=== PATIENT | male | born 2000 | race Caucasian/White ===

== ENCOUNTER → 2019-11-28 11:14 | Outpatient (BNVA) | payer OTHER, SELFPAY | PROVIDERS: Family Provider Family Medicine; Visit Provider Nurse Practitioner Family | DX: R05 Cough (principal); J40 Bronchitis, not specified as acute or chronic; Z20.828 Contact with and (suspected) exposure to other viral communicable diseases | CPT/HCPCS: 87071; 87400; 87635; 87880 ==

== ENCOUNTER 2020-08-06 17:36 | Inpatient (IN) | payer OTHER, SELFPAY ==
[2020-08-06] VITALS (11 sets, daily range): BP systolic 114–204; BP diastolic 62–135; PULSE 94–127; RESP 18–46; TEMP 37; O2SAT 86–98; BMI 54.9
--- NOTE | 2020-08-06 18:18 | XRR_ITS ---
PROCEDURE INFORMATION: Exam: XR Chest, 1 View Exam date and time: 08/06/2020 6:26 PM Age: 20 years old Clinical indication: Dyspnea; Patient HX: Shortness of breath, chest pressure TECHNIQUE: Imaging protocol: XR of the chest Views: 1 view. Total images: 1 COMPARISON: No relevant prior studies available. FINDINGS: Lungs: Bilateral ground-glass interstitial lung disease with densely consolidated alveolar airspace disease right upper and right lower lobe of pneumonitis/pneumonia, right right lung involvement greater than left. Pleural space: Unremarkable. No pleural effusion. No pneumothorax. Heart/Mediastinum: Unremarkable. No cardiomegaly. Bones/joints: Unremarkable. XR/XR chest 1V portable [id number] IMPRESSION: Bilateral ground-glass interstitial lung disease with densely consolidated alveolar airspace disease right upper and right lower lobe of pneumonitis/pneumonia.
--- NOTE | 2020-08-06 18:18 | ECG_ITS ---
[facility], 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 Measurements Intervals [place] Rate: 105 P: 26 MT: 152 QRS: 36 QRSD: 93 T: 41 QT: 332 QTc: 440 Interpretive Statements SINUS TACHYCARDIA No previous ECG available for comparison Electronically Signed On 08-07-2020 16:44:02 SENIOR RELIABILITY ENGINEER by Ry Narayan M.D. [id number]
--- NOTE | 2020-08-06 18:20 | ED_ITS ---
HPI - General Adult General: Chief complaint: Shortness of Breath/Dyspnea Stated complaint: SOB, chest pressure Time Seen by Provider: 08/06/20 18:17 Source: patient Mode of arrival: ambulatory Limitations: no limitations History of Present Illness: HPI narrative: Herrera is a 20-year-old male who comes in complaining of flulike symptoms. He has cough, shortness of breath, s ore throat, muscle aches and pains and fatigue. His symptoms have been present for the past 4 to 5 days. Patient states that he just progressed became more weak and more short of breath that is why he came here to the hospital. He denies any history of respiratory problems. Of note upon the patient coming to triage she was found to be hypoxemic and immediately brought back to her room and on room air pulse ox he was 38% with a good waveform. Patient did not appear respiratory distress but does state that he feels short of breath. Patient states anytime she exerts himself or does anything that is physically taxing he becomes more short of breath and fatigue. He does state rest makes his symptoms better. Associated symptoms: Reports dyspnea and malaise; Deny chest pain, confusion, diaphoresis, headache(s), nausea, rash, palpitations, syncope or vomiting Review of Systems Const: Reports: fever(s), body aches, fatigue and malaise; Denies: chills or diaphoresis Eyes: Denies: change in vision, blurry vision, photophobia, eye discomfort, eye discharge, eye redness or yellow eyes ENMT: Reports: throat pain; Denies: odynophagia, hoarseness, swelling of lips/tongue, ear or mastoid pain, ear discharge, change in hearing or nasal discharge Card: Denies: chest pain, palpitations, irregular heart rhythm, edema, lightheadedness, syncope, pre-syncope, dyspnea on exertion or orthopnea Resp: Reports: dyspnea, non-productive cough and chest congestion; Denies: productive cough, wheezing or hemoptysis GI: Denies: abdominal pain, nausea, vomiting, hematemesis, coffee ground emesis, heartburn, diarrhea, constipation, GI cramping, hematochezia or melena : Denies: flank pain, dysuria, urinary frequency, urinary urgency or hematuria Musc: Denies: neck pain, back pain, extremity pain, extremity swelling, joint pain, joint swelling, joint redness, joint warmth or joint stiffness Skin/Breast: Denies: rash, pruritus, erythema, skin pain or skin tenderness Neuro: Denies: headache(s), numbness in extremities, weakness in extremities, sensory changes, lack of coordination, difficulty walking, dizziness, vertigo, confusion, Slurred speech present or seizure-like activity Bryson/Lymph: Denies: easy bruising, easy bleeding, petechiae, purpura or enlarged lymph nodes All/Imm: Denies: urticaria, throat swelling, tongue swelling, facial swelling or acute wheezing PFSH ED PFSH: Medical History Hypothyroidism Social History Smoking and tobacco status: current every day smoker Alcohol intake: never Physical Exam Const: COMMON NORMALS: no acute distress, patient oriented x3, no limitations and alert GENERAL APPEARANCE: cooperative HENMT: COMMON NORMALS: normocephalic, atraumatic, external ears normal, EAC's normal and Normal external nose present HEAD & SCALP: normal to inspection, normocephalic and atraumatic FACE & SINUS: normal facial exam and face symmetric NOSE: Normal external nose present and Normal nares present EXTERNAL EAR: Yes external ears normal EXTERNAL AUDITORY CANAL: EAC's normal MOUTH: Normal oral and palatal mucosa present, lip normal and tongue normal Eye: COMMON NORMALS: Equal, round and reactive pupils present and conjunctivae normal GENERAL EYE: appearance normal, both eyes and all related structures ALIGNMENT: Yes alignment normal PERIORBITAL: periorbital findings normal EYELID: eyelids normal CONJUNCTIVA: Yes conjunctivae normal SCLERA: sclera e normal PUPIL: Yes Equal, round and reactive pupils present Neck/C-Spine: COMMON NORMALS: full ROM, no lymphadenopathy, supple, no meningeal signs and no JVD GENERAL: Yes normal visual inspection and Yes trachea midline Chest: COMMONS NORMALS: normal inspection of the chest and normal palpation of entire chest wall Resp: COMMON NORMALS: normal respiratory effort, No retractions, No use of accessory muscles and clear to auscultation bilaterally EFFORT & INSPECTION: Yes able to speak in complete sentences and Yes symmetric chest movement AUSCULTATION: clear to auscultation bilaterally, no crackles, no rales, no rhonchi and no wheezes Cardio: COMMON NORMALS: no JVD, regular rate, regular rhythm, S1 normal heart sound present and S2 normal heart sound present RATE: regular rate RHYTHM: regular rhythm HEART SOUNDS: S1 normal heart sound present, S2 normal heart sound present, no click, no gallops, no murmurs and no rubs GI: COMMON NORMALS: Soft to palpation and No hepatosplenomegaly present PALPATION: Yes Soft to palpation, No Tenderness to palpation present (GI), No Guarding due to palpation present (GI), No Rigid due to palpation, Yes No hepatosplenomegaly present, No Hernia present, No Palpable mass present and No Pulsatile mass present : COMMON NORMALS: Yes no CVA tenderness BLADDER/KIDNEY EXAM: Yes no CVA tenderness Back/Pelvis: COMMON NORMALS: no CVA tenderness, thoracic and lumbar spine norm al to inspection, no thoracic nor lumbar tenderness and thoraco-lumbar ROM normal Extremity: COMMON NORMALS: normal to inspection, full ROM, capillary refill normal, no joint enlargement, no clubbing, cyanosis or edema and no calf tenderness Neuro: COMMON NORMALS: patient oriented x3, CN's II-XII intact bilaterally, moves all extremities, no focal motor deficits and no sensory deficits noted SENSORIUM/ORIENTATION: Yes alert MENINGEAL SIGNS: Yes no meningeal signs SPEECH: speech normal Psych: COMMON NORMALS: mental status grossly normal, Normal thought process present, cooperative, normal affect, speech normal and activity/motor behavior normal SPEECH: Yes normal speech THOUGHT PROCESS: Normal thought process present Skin: COMMON NORMALS: no rashes or lesions noted, turgor normal, no jaundice, no petechiae and no mottling GENERAL SKIN EXAM: no rashes or lesions noted and turgor normal Course Vital Signs: Vital signs: Vital Signs Temperature 98.6 F 08/06/20 18:16 Pulse Rate 114 H 08/06/20 20:30 Respiratory Rate 27 H 08/06/20 20:30 Blood Pressure 126/67 08/06/20 20:30 Pulse Oximetry 93 08/06/20 20:30 MDM - General Adult MDM Narrative: Medical decision making narrative: 2053 -the patient looks like a Covid syndrome type picture. His rapid Covid is negative but a PCR has been sent as I still believe this is likely what caused his pneumonia. The patient will need to be placed in the ICU as you requiring a tremendous amount of oxygen. He is no longer tachypneic but still requiring a lot of oxygen to maintain his pulse oximetry. Further care will be dictated by Dr. Singer. Lab Data: Attestation: I reviewed the patient's lab results. Labs: Lab Results 08/06/20 08/06/20 08/06/20 Range/Units 18:22 18:22 18:22 WBC 7.2 (4.0-10.0) 10^3/ uL RBC 5.88 H (4.1-5.3) 10^6/u L Hgb 13.9 (11.7-16.6) g/dL Hct 46.1 (42.0-52.0) % MCV 78.4 L (80-94) fL MCH 23.6 L (28.0-34.0) pg MCHC 30.2 (30.0-36.0) g/dL RDW 14.9 (12.1-15.1) % Plt Count 257 (130-400) 10^3/c mm MPV 10.9 H (7.4-10.4) fL Neut % (Auto) 68.7 % Lymph % (Auto) 23.5 % Davidson % (Auto) 6.5 % Eos % (Auto) 0.0 % Baso % (Auto) 0.3 % Neut # (Auto) 4.96 (1.8-7.7) 10^3/u L Lymph # (Auto) 1.7 (0.8-4.8) 10^3/u L Davidson # (Auto) 0.5 (0.2-0.9) 10^3/u L Eos # (Auto) 0.0 (0.0-0.8) 10^3/u L Baso # (Auto) 0.0 (0.0-0.1) 10^3/u L Nucleated RBC % (a uto) 1.8 % Nucleated RBCs # 0.1 /100WBC PT 13.70 (12.1-14.9) SECO NDS INR 1.02 (0.8-1.2) Fibrinogen 523 H (174-498) mg/dL D-Dimer 4.63 H (0-0.59) ug/mIFE U Specimen Type Sample Site ABG pH (7.35-7.45) ABG pCO2 (35-45) mmHg ABG pO2 (80.0-100.0) mmH g ABG HCO3 (22-26) mmol/L ABG Base Excess (-2.0-2.0) mmol/ L Esteban Test Hematocrit (42-52) % O2 Delivery Device O2 Liters/Min % Desulphurizer Operator ID Sodium 137 (136-145) mmol/L Potassium 4.0 (3.5-5.1) mmol/L Chloride 95 L (98-107) mmol/L Carbon Dioxide 32 H (22-29) mmol/L Anion Gap 14.0 (5-19) BUN 12 (6-20) mg/dL Creatinine 0.7 (0.7-1.2) mg/dL GFR Calculation 142.4 H (90-130) mL/min Glucose 150 H (65-115) mg/dL Calculated Osmolal ity 287 (285-295) mOsm/k g Lactic Acid (0.5-2.2) mmol/L Calcium 8.5 (8.5-10.5) mg/dL Total Bilirubin 0.7 (0.15-1.2) mg/dL AST 48 H (0-40) U/L ALT 43 H (0-41) U/L Alkaline Phosphata se 71 (40-130) IU/L Lactate Dehydrogen ase 940 H (135-225) U/L Creatine Kinase 587 H* (39-308) U/L Troponin T Gen 5 n g/L Troponin T Baselin e (0-15) ng/L C-Reactive Protein 119.3 H (0.0-4.9) mg/L NT-Pro-B Natriuret Pep (0-125) pg/mL Total Protein 6.0 L (6.6-8.7) g/dL Albumin 3.7 (3.5-5.2) g/dL Globulin 2.3 (1.3-4.6) g/dL Procalcitonin 0.20 (0-0.5) ng/mL Influenza Type A A g (Negative) Influenza Type B A g (Negative) SARS-CoV-2 Ag (Rap id) (Negative) 08/06/20 08/06/20 08/06/20 Range/Units 18:22 18:22 18:22 WBC (4.0-10.0) 10^3/ uL RBC (4.1-5.3) 10^6/u L Hgb (11.7-16.6) g/dL Hct (42.0-52.0) % MCV (80-94) fL MCH (28.0-34.0) pg MCHC (30.0-36.0) g/dL RDW (12.1-15.1) % Plt Count (130-400) 10^3/c mm MPV (7.4-10.4) fL Neut % (Auto) % Lymph % (Auto) % Davidson % (Auto) % Eos % (Auto) % Baso % (Auto) % Neut # (Auto) (1.8-7.7) 10^3/u L Lymph # (Auto) (0.8-4.8) 10^3/u L Davidson # (Auto) (0.2-0.9) 10^3/u L Eos # (Auto) (0.0-0.8) 10^3/u L Baso # (Auto) (0.0-0.1) 10^3/u L Nucleated RBC % (a uto) % Nucleated RBCs # /100WBC PT (12.1-14.9) SECO NDS INR (0.8-1.2) Fibrinogen (174-498) mg/dL D-Dimer (0-0.59) ug/mIFE U Specimen Type Sample Site ABG pH (7.35-7.45) ABG pCO2 (35-45) mmHg ABG pO2 (80.0-100.0) mmH g ABG HCO3 (22-26) mmol/L ABG Base Excess (-2.0-2.0) mmol/ L Esteban Test Hematocrit (42-52) % O2 Delivery Device O2 Liters/Min % Desulphurizer Operator ID Sodium (136-145) mmol/L Potassium (3.5-5.1) mmol/L Chloride (98-107) mmol/L Carbon Dioxide (22-29) mmol/L Anion Gap (5-19) BUN (6-20) mg/dL Creatinine (0.7-1.2) mg/dL GFR Calculation (90-130) mL/min Glucose (65-115) mg/dL Calculated Osmolal ity (285-295) mOsm/k g Lactic Acid 1.7 (0.5-2.2) mmol/L Calcium (8.5-10.5) mg/dL Total Bilirubin (0.15-1.2) mg/dL AST (0-40) U/L ALT (0-41) U/L Alkaline Phosphata se (40-130) IU/L Lactate Dehydrogen ase (135-225) U/L Creatine Kinase (39-308) U/L Troponin T Gen 5 n g/L Cancelled Troponin T Baselin e (0-15) ng/L C-Reactive Protein (0.0-4.9) mg/L NT-Pro-B Natriuret Pep 139 H (0-125) pg/mL Total Protein (6.6-8.7) g/dL Albumin (3.5-5.2) g/dL Globulin (1.3-4.6) g/dL Procalcitonin (0-0.5) ng/mL Influenza Type A A g (Negative) Influenza Type B A g (Negative) SARS-CoV-2 Ag (Rap id) (Negative) 08/06/20 08/06/20 08/06/20 Range/Units 18:22 18:23 19:28 WBC (4.0-10.0) 10^3/ uL RBC (4.1-5.3) 10^6/u L Hgb (11.7-16.6) g/dL Hct (42.0-52.0) % MCV (80-94) fL MCH (28.0-34.0) pg MCHC (30.0-36.0) g/dL RDW (12.1-15.1) % Plt Count (130-400) 10^3/c mm MPV (7.4-10.4) fL Neut % (Auto) % Lymph % (Auto) % Davidson % (Auto) % Eos % (Auto) % Baso % (Auto) % Neut # (Auto) (1.8-7.7) 10^3/u L Lymph # (Auto) (0.8-4.8) 10^3/u L Davidson # (Auto) (0.2-0.9) 10^3/u L Eos # (Auto) (0.0-0.8) 10^3/u L Baso # (Auto) (0.0-0.1) 10^3/u L Nucleated RBC % (a uto) % Nucleated RBCs # /100WBC PT (12.1-14.9) SECO NDS INR (0.8-1.2) Fibrinogen (174-498) mg/dL D-Dimer (0-0.59) ug/mIFE U Specimen Type Arterial Sample Site Radial, left ABG pH 7.44 (7.35-7.45) ABG pCO2 44.3 (35-45) mmHg ABG pO2 63.3 L (80.0-100.0) mmH g ABG HCO3 30.3 H (22-26) mmol/L ABG Base Excess 5.4 H (-2.0-2.0) mmol/ L Esteban Test Pos Hematocrit 43.3 (42-52) % O2 Delivery Device Nrb O2 Liters/Min 15.0 % Desulphurizer Operator ID Amh Sodium (136-145) mmol/L Potassium (3.5-5.1) mmol/L Chloride (98-107) mmol/L Carbon Dioxide (22-29) mmol/L Anion Gap (5-19) BUN (6-20) mg/dL Creatinine (0.7-1.2) mg/dL GFR Calculation (90-130) mL/min Glucose (65-115) mg/dL Calculated Osmolal ity (285-295) mOsm/k g Lactic Acid (0.5-2.2) mmol/L Calcium (8.5-10.5) mg/dL Total Bilirubin (0.15-1.2) mg/dL AST (0-40) U/L ALT (0-41) U/L Alkaline Phosphata se (40-130) IU/L Lactate Dehydrogen ase (135-225) U/L Creatine Kinase (39-308) U/L Troponin T Gen 5 n g/L Troponin T Baselin e 14 (0-15) ng/L C-Reactive Protein (0.0-4.9) mg/L NT-Pro-B Natriuret Pep (0-125) pg/mL Total Protein (6.6-8.7) g/dL Albumin (3.5-5.2) g/dL Globulin (1.3-4.6) g/dL Procalcitonin (0-0.5) ng/mL Influenza Type A A g Negative (Negative) Influenza Type B A g Negative (Negative) SARS-CoV-2 Ag (Rap id) (Negative) 08/06/20 Range/Units 19:28 WBC (4.0-10.0) 10^3/ uL RBC (4.1-5.3) 10^6/u L Hgb (11.7-16.6) g/dL Hct (42.0-52.0) % MCV (80-94) fL MCH (28.0-34.0) pg MCHC (30.0-36.0) g/dL RDW (12.1-15.1) % Plt Count (130-400) 10^3/c mm MPV (7.4-10.4) fL Neut % (Auto) % Lymph % (Auto) % Davidson % (Auto) % Eos % (Auto) % Baso % (Auto) % Neut # (Auto) (1.8-7.7) 10^3/u L Lymph # (Auto) (0.8-4.8) 10^3/u L Davidson # (Auto) (0.2-0.9) 10^3/u L Eos # (Auto) (0.0-0.8) 10^3/u L Baso # (Auto) (0.0-0.1) 10^3/u L Nucleated RBC % (a uto) % Nucleated RBCs # /100WBC PT (12.1-14.9) SECO NDS INR (0.8-1.2) Fibrinogen (174-498) mg/dL D-Dimer (0-0.59) ug/mIFE U Specimen Type Sample Site ABG pH (7.35-7.45) ABG pCO2 (35-45) mmHg ABG pO2 (80.0-100.0) mmH g ABG HCO3 (22-26) mmol/L ABG Base Excess (-2.0-2.0) mmol/ L Esteban Test Hematocrit (42-52) % O2 Delivery Device O2 Liters/Min % Desulphurizer Operator ID Sodium (136-145) mmol/L Potassium (3.5-5.1) mmol/L Chloride (98-107) mmol/L Carbon Dioxide (22-29) mmol/L Anion Gap (5-19) BUN (6-20) mg/dL Creatinine (0.7-1.2) mg/dL GFR Calculation (90-130) mL/min Glucose (65-115) mg/dL Calculated Osmolal ity (285-295) mOsm/k g Lactic Acid (0.5-2.2) mmol/L Calcium (8.5-10.5) mg/dL Total Bilirubin (0.15-1.2) mg/dL AST (0-40) U/L ALT (0-41) U/L Alkaline Phosphata se (40-130) IU/L Lactate Dehydrogen ase (135-225) U/L Creatine Kinase (39-308) U/L Troponin T Gen 5 n g/L Troponin T Baselin e (0-15) ng/L C-Reactive Protein (0.0-4.9) mg/L NT-Pro-B Natriuret Pep (0-125) pg/mL Total Protein (6.6-8.7) g/dL Albumin (3.5-5.2) g/dL Globulin (1.3-4.6) g/dL Procalcitonin (0-0.5) ng/mL Influenza Type A A g (Negative) Influenza Type B A g (Negative) SARS-CoV-2 Ag (Rap id) Negative (Negative) EKG Data^: EKG 1: Attestation: I personally reviewed and interpreted this EKG as follows: EKG interpretation date: 08/06/20 EKG interpretation time: 18:20 Interpretation: Sinus tachycardia at 115 beats a minute, normal axis, no blocks, intervals, no acute ST-T wave changes. Computer generated interpretation: Chest X-Ray 08/06/20 18:18 IMPRESSION: Bilateral ground-glass interstitial lung disease with densely consolidated alveolar airspace disease right upper and right lower lobe of pneumonitis/pneumonia. EKG 2: Attestation: I personally reviewed and interpreted this EKG as follows: EKG interpretation date: 08/06/20 EKG interpretation time: 20:34 Interpretation: Sinus tachycardia to 105 beats a minute, normal axis, no blocks, normal intervals, no acute ST-T wave changes. Computer generated interpretation: Chest X-Ray 08/06/20 18:18 IMPRESSION: Bilateral ground-glass interstitial lung disease with densely consolidated alveolar airspace disease right upper and right lower lobe of pneumonitis/pneumonia. Discharge Plan Discharge Patient Disposition: Admitted As Inpatient Clinical Impression: Viral pneumonia Condition: Stable Prescriptions: No Action azithromycin 250 mg tablet See Rx Instructions PO .COMPLEX Qty: 6 RF: 0 Coding Level of Care Code ED [employer] Supervisor for Gilda Fwd Exam Comprehensive
[2020-08-06 18:28] LABS: Basophils % 0.3 %; Hematocrit 46.1 % (42.0-52.0); Hemoglobin 13.9 g/dL (11.7-16.6); Lymphocytes # 1.7 10^3/uL (0.8-4.8); Lymphocytes % 23.5 %; Mean Corpuscular HGB Conc 30.2 g/dL (30.0-36.0); Mean Corpuscular Hemoglobin 23.6 pg (28.0-34.0); Mean Corpuscular Volume 78.4 fL (80-94); Mean Platelet Volume 10.9 fL (7.4-10.4); Monocytes # 0.5 10^3/uL (0.2-0.9); Monocytes % 6.5 %; Neutrophils # 4.96 10^3/uL (1.8-7.7); Neutrophils % 68.7 %; Nucleated Red Blood Cells # 0.1 /100WBC; Nucleated Red Blood Cells % 1.8 %; Platelet Count 257 10^3/cmm (130-400); Red Blood Count 5.88 10^6/uL (4.1-5.3); Red Cell Distribution Width 14.9 % (12.1-15.1); White Blood Count 7.2 10^3/uL (4.0-10.0)
[2020-08-06 18:34] LABS: ABG PCO2 44.3 mmHg (35-45); ABG PH Result 7.44 (7.35-7.45); Arterial Blood Gas Hematocrit 43.3 % (42-52); Base Excess ABG 5.4 mmol/L (-2.0-2.0); Blood Gas Allen Test Pos; Blood Gas Sample Site Radial, left; Blood Gas Sample Type Arterial; HCO3 ABG 30.3 mmol/L (22-26); Oxygen Device NRB; PO2 ABG 63.3 mmHg (80.0-100.0)
[2020-08-06] MEDS: albuterol 8 gm MDI 6 PUFF INHALATION (18:39)
[2020-08-06 18:45] LABS: INR 1.02 (0.8-1.2)
[2020-08-06 18:46] LABS: Lactic Sepsis W/Reflex 1.7 mmol/L (0.5-2.2)
[2020-08-06 18:47] LABS: Fibrinogen 523 mg/dL (174-498)
[2020-08-06 18:50] LABS: Troponin(5th) Baseline 14 ng/L (0-15)
[2020-08-06 18:56] LABS: D Dimer 4.63 ug/mIFEU (0-0.59)
[2020-08-06 19:07] LABS: Alanine Aminotransferase 43 U/L (0-41); Albumin Level 3.7 g/dL (3.5-5.2); Alkaline Phosphatase 71 IU/L (40-130); Aspartate Amino Transferase 48 U/L (0-40); Blood Urea Nitrogen 12 mg/dL (6-20); C Reactive Protein 119.3 mg/L (0.0-4.9); Calcium 8.5 mg/dL (8.5-10.5); Carbon Dioxide 32 mmol/L (22-29); Chloride 95 mmol/L (98-107); Globulin 2.3 g/dL (1.3-4.6); Glomerular Filtration Rate 142.4 mL/min (90-130); Glucose 150 mg/dL (65-115); Lactate Dehydrogenase 940 U/L (135-225); Osmolality Calculated 287 mOsm/kg (285-295); Sodium 137 mmol/L (136-145); Total Bilirubin 0.7 mg/dL (0.15-1.2)
[2020-08-06 19:09] LABS: Blood Gas Operator Identificat AMH
--- NOTE | 2020-08-06 19:09 | CTR_ITS ---
PROCEDURE INFORMATION: Exam: CT Angiography Chest With Contrast Exam date and time: 08/06/2020 7:10 PM Age: 20 years old Clinical indication: Shortness of breath; Additional info: Dyspnea, postive d-dimer TECHNIQUE: Imaging protocol: Computed tomographic angiography of the chest with intravenous contrast. 3D rendering (Not supervised by radiologist): MIP and/or 3D reconstructed images were created by the technologist. Total images: 955 Radiation optimization: All CT scans at this facility use at least one of these dose optimization techniques: automated exposure control; mA and/or kV adjustment per patient size (includes targeted exams where dose is matched to clinical indication); or iterative reconstruction. Contrast material: OMNIPAQUE 350; Contrast volume: 90 ml; Contrast route: INTRAVENOUS (IV); COMPARISON: CR XR chest 1V portable [id number] 08/06/2020 6:26 PM RADIATION DOSE METRICS: Total DLP (mGy-cm): 621.94 FINDINGS: Pulmonary arteries: No definitive visible evidence of pulmonary embolism/pulmonary arterial thrombus. Aorta: Unremarkable. No aortic aneurysm. No aortic dissection. Lungs: Extensive bilateral ground-glass interstitial lung disease with evidence of early consolidation consistent with active pneumonitis/pneumonia. Constellation of findings would suggest the potential for Covid-19 pneumonitis//pneumonia. Pleural space: Unremarkable. No pneumothorax. No pleural effusion. Heart: Unremarkable. No cardiomegaly. No pericardial effusion. Lymph nodes: Marginally prominent mediastinal and hilar lymph nodes. Presumed reactive. Liver: Diffuse fatty infiltration of the liver with hepatomegaly. Gallbladder and bile ducts: Hepatization of the gallbladder. Spleen: Splenomegaly. Bones/joints: Unremarkable. No acute fracture. Soft tissues: Unremarkable. Other findings: Obesity. Increased quantum mottle artifact which degrades image quality in detail assessment. CT/CT angio chest PE protcl [id number] IMPRESSION: 1. No definitive visible evidence of pulmonary embolism/pulmonary arterial thrombus. 2. Extensive bilateral ground-glass interstitial lung disease with evidence of early consolidation consistent with active pneumonitis/pneumonia. Constellation of findings would suggest the potential for Covid-19 pneumonitis//pneumonia. 3. Marginally prominent mediastinal and hilar lymph nodes presumably reactive. 4. Diffuse fatty infiltration of the liver with hepatomegaly. 5. Hepatization of the gallbladder. 6. Splenomegaly. Radiation Dose CTDIVOL = (mGy): DLP = 621.94 (mGy-cm)
[2020-08-06 19:10] LABS: Creatine Phosphokinase 587 U/L (39-308)
[2020-08-06 19:14] LABS: NT Pro B Type Natriuretic Pept 139 pg/mL (0-125)
[2020-08-06] MEDS: levofloxacin-dextrose 5 % 750 MG/150 ML PREMIX 150 MG IV (19:26)
[2020-08-06] MEDS: dexamethasone 4 mg/mL INJ 6 MG IVP (19:26)
[2020-08-06] MEDS: lactated ringers 1,000 ML 150 ML IV (19:27)
[2020-08-06 20:17] LABS: SARS Covid-2 Antigen Negative (Negative)
[2020-08-06 20:20] LABS: Influenza A by IFA Negative (Negative); Influenza B by IFA Negative (Negative)
--- NOTE | 2020-08-06 20:29 | ECG_ITS ---
[facility] Test Date: 2020-08-06 Pat Name: Herrera Jain Department: Room: Gender: Male Vice President Underwriting: : 2000 Requested By: Loree Kimball Order Number: [id number] Gonzalez MD: Ry Narayan M.D. Measurements Intervals [place] Rate: 115 P: 24 CT: 155 QRS: 36 QRSD: 87 T: 48 QT: 318 QTc: 440 Interpretive Statements SINUS TACHYCARDIA No previous ECG available for comparison Electronically Signed On 08-07-2020 16:59:25 EDUCATION REVIEWER by Ry Narayan M.D. [id number]
--- NOTE | 2020-08-06 20:59 | P.HP_ITS ---
Providers/Chief Complaint Chief Complaint: SOB, chest pressure History of Present Illness Herrera Jain is a 20 year old male who does not have significant past medical history other than hypothyroidism presented today with chief complaint of 4 days of shortness of breath. Patient is stating that he smokes marijuana on a weekly basis, does VAP on daily basis, started experiencing diarrhea 4 days ago and shortness of breath, also noticed temperature 101, he did not experience any coughing, PND, chest pain, headache but he has been experiencing myalgias, fatigue and lethargy, today his shortness of breath got worse hence decided to come to the ED for further evaluation. Patient was saturating 38% reportedly on room air on arrival, he was immediately put on high flow oxygen 55 L 85% FiO2 which improved his work of breathing and oxygenation, considering high D-dimer CT was obtained which did not reveal PE, procalcitonin not high he was started on remdesivir and Decadron. Covid antigen was negative hence PCR was sent because of high suspicion. Patient is stating that he was diagnosed with hypothyroidism in 2018 and never got any treatment for that, currently working for [employer], lives with a roommate, he does have anxiety and sometimes picks on his skin. Diagnosis in the ER revealed hypotension, tachycardia, sepsis secondary to COVID-19, he was started on lactated Ringer fluid resuscitation, by the time I saw her he was saturating well on high flow 55 L 85% he just came back from CTA chest was not endorsing active shortness of breath however endorsed pleuritic chest pain on right side, in the ER he received albuterol & Levaquin as well Review of Systems Const: Reports: fever(s), chills, body aches, change in appetite, fatigue and malaise Eyes: Denies: change in vision ENMT: Denies: throat pain Card: Reports: dyspnea on exertion; Denies: chest pain Resp: Reports: dyspnea and non-productive cough GI: Reports: diarrhea; Denies: abdominal pain : Denies: flank pain Musc: Denies: neck pain Skin/Breast: Denies: rash Neuro: Denies: headache(s) Psych: Denies: anxiety Endo: Denies: polyuria Bryson/Lymph: Denies: easy bruising All/Imm: Denies: urticaria Medications/Allergies Home Medications Medication Instructions Recorded Confirmed Last Taken Type azithromycin 250 mg tablet See Rx Instructions PO .COMPLEX #6 11/28/19 11/28/19 Unknown Rx tab Allergies Allergy/AdvReac Type Severity Reaction Status Date / Time No Known Allergies Allergy Verified 11/28/19 11:13 PFSH Acute PFSH: Medical History (Updated 08/06/20 @ 22:12 by Almas Singer MD) Hypothyroidism Surgical History (Updated 08/06/20 @ 22:06 by Almas Singer MD) No pertinent past surgical history Family History (Updated 08/06/20 @ 22:06 by Almas Singer MD) Other CAD (coronary artery disease) Diabetes Social History (Updated 08/06/20 @ 22:07 by Almas Singer MD) Smoking and tobacco status: current every day smoker Alcohol intake: never Substance/Drug Use: current Substance/Drug use type: Marijuana Other substance/drug use details: Vap Household members: friend(s) Housing: Apartment Vitals/I&O/Wt Last Vital Signs Temp 98.6 F 08/06/20 18:16 Pulse 114 H 08/06/20 20:30 Resp 27 H 08/06/20 20:30 BP 126/67 08/06/20 20:30 Pulse Ox 93 08/06/20 20:30 Weight last 48 hrs Weight 183.705 kg Data : 08/06/20 18:22 08/06/20 18:22 Micro: Microbiology 08/06/20 20:35 Blood Culture - Preliminary Blood SPECIMEN COLLECTED 08/06/20 18:22 Blood Culture - Preliminary Blood SPECIMEN COLLECTED A&P Assessment and plan (1) Viral pneumonia: Status: Acute (2) Sepsis: Status: Acute (3) Acute respiratory failure with hypoxia: Status: Acute Additional A&P Information Acute hypoxia with sepsis secondary to viral pneumonia Meets ARDS criteria for bilateral groundglass opacities and hypoxia Currently doing well on high flow oxygenation 55 L 85% High risk for intubation He has received Levaquin remdesivir and Decadron in the ER, procalcitonin is not remarkable CTA rule out PE I would continue, Levaquin, remdesivir and Decadron, would request Covid PCR Ventolin for shortness of breath every 4h as needed Differential would also include vaping induced lung injury Hypothyroidism We will check TSH, patient is not on levothyroxine Morbid obesity Follow-up on TSH, patient also is suffering from anxiety/depression picks on his skin whenever he gets anxious there are scar garza on his extremities however denies suicidal ideation Full code DVT prophylaxis Lovenox Regular diet Attestations Medical Necessity Statement*: Anticipating stay in the hospital course more than 2 midnights continued management for sepsis secondary to viral pneumonia needs to rule out Covid 19 pneumonia with PCR Time Spent in Patient Care: (>than 50% of time spent in counselling and/or direct pt care on unit) . 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
[2020-08-06 21:06] LABS: Troponin 5 2HR 13.07 ng/L (0-15)
[2020-08-06 21:07] LABS: Troponin 5 2HR Delta -0.93 ABS# (0-10)
[2020-08-06] MEDS: remdesivir 200 MG in sodium chloride 0.9% (100 ml) 100 ML 100 MG IV (21:44)
[2020-08-07] VITALS (45 sets, daily range): BP systolic 62–176; BP diastolic 46–119; PULSE 84–161; RESP 13–46; TEMP 36.6–37.1; O2SAT 50–100
--- NOTE | 2020-08-07 00:29 | ECG_ITS ---
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 Measurements Intervals [place] Rate: 91 P: 23 IL: 155 QRS: 20 QRSD: 93 T: 33 QT: 363 QTc: 447 Interpretive Statements SINUS RHYTHM Compared to ECG 08/06/2020 20:34:19 Sinus tachycardia no longer present Electronically Signed On 08-07-2020 16:58:17 MOLD LOFT WORKER by Ry Narayan M.D. [id number]
[2020-08-07 01:25] LABS: Troponin 5 6HR 8.51 ng/L (0-15)
[2020-08-07 01:40] LABS: Troponin 5 6HR Delta -5.49 ng/L (0-12)
[2020-08-07] MEDS: enoxaparin 40 mg/0.4 mL Syringe SUBCUT (04:45)
[2020-08-07 07:28] LABS: Estmated Average Glucose 171; Hemoglobin A1C 7.6 % (4.0-6.0)
[2020-08-07 07:33] LABS: Thyroid Stimulating Hormone 1.81 uIU/mL (0.27-4.20)
--- NOTE | 2020-08-07 08:12 | PM.PN ---
Subjective Subjective: Interval history: Patient stated he felt much better than at the time of admission. No fever, chills, nausea or vomiting. Denied chest pain. Noted improvement in respiratory distress. Medications: Reviewed: Yes Vitals/I&O/Wt Last Vital Signs Temp 98 F 08/07/20 17:00 Pulse 100 08/07/20 19:39 Resp 28 H 08/07/20 19:34 BP 95/70 08/07/20 17:00 Pulse Ox 90 08/07/20 19:39 08/07/20 08/07/20 08/07/20 06:59 14:59 22:59 Intake Total 100 / 250 150 / 150 Output Total 750 / 750 250 / 250 Balance -650 / -500 -250 / -250 150 / -100 Weight last 48 hrs Weight 183.705 kg Physical Exam Narrative: EXAM NARRATIVE: General: Alert, awake oriented x 3, Mild respiratory distress HEENT; Grossly unremarkable CVS : Normal Sinus Chest - Mild respiratory distress ABD :Non-distended Ext : edema Data : 08/07/20 10:48 08/07/20 10:48 Micro: Microbiology 08/06/20 20:35 Blood Culture - Preliminary Blood NEGATIVE TO DATE 08/06/20 18:22 Blood Culture - Preliminary Blood NEGATIVE TO DATE A&P Assessment and plan (1) Viral pneumonia: Status: Acute (2) Sepsis: Status: Acute (3) Acute respiratory failure with hypoxia: Status: Acute Additional A&P Information Acute Respiratory failure with Hypoxemia - Etiology multi-factorial. - Vaping-induced lung injury vs possible COVID-19 related - 08/06- Chest x-ray showed chronic ox and shoulders lung disease with densely consolidated alveolar airspace in right upper and lower lobes. 08/06- CTA - no evidence of pulmonary embolism however noted to again have bilateral ground-glass interstitial lung disease with early consolidation consistent with active pneumonitis / pneumonia. Mediastinal and hilar lymphadenopathy, fatty liver and splenomegaly. - COVID-19 rapid ag negative - pending PCR send out - Increase RR in am with mildly labored respiration - D/w Respiratory - Place on BiPaP - Repeat ABG 1 hr post PPV - Maintain o2 saturation > 92 - Continue Decadron 6 mg daily - High suspicion of COVID-19 - Initiated on remdesivir per protocol - IV abx - Decrease IVF to 50 cc/hr - Repeat chest x-ray and ABG in am - If COVID-19 postive will transfer to Viral ICU - Will consider pulmonary consult Hypothyroidism - Follow up on labs Morbid obesity - Dietary consult at discharge Full code DVT prophylaxis Lovenox Attestations Medical Necessity Statement*: Will require further hospitalization for management of hypoxemic respiratory failure Coding Level of Care Code Acute Human Resources Operations Director for Chg Fwd Diagnoses Viral pneumonia J12.9 Sepsis A41.9 Acute respiratory failure with hypoxia J96.01
--- NOTE | 2020-08-07 08:19 | PC.NURSE ---
awake restless ,, dypnic with any activity noted on high flow o2 at this time ..
[2020-08-07] MEDS: sodium chloride 0.9% 500 ML 999 ML IV (08:59)
--- NOTE | 2020-08-07 09:04 | XRR_ITS ---
PROCEDURE INFORMATION: Exam: XR Chest, 1 View Exam date and time: 08/07/2020 9:05 AM Age: 20 years old Clinical indication: Shortness of breath; Additional info: Worseing respiratory distress TECHNIQUE: Imaging protocol: XR of the chest Views: 1 view. COMPARISON: CR XR chest 1V portable [id number] 08/06/2020 6:26 PM FINDINGS: The thorax is partially obscured by overlying EKG leads. Lungs: Asymmetric airspace disease, right greater than left, and interstitial prominence. New obscuration of the right hemidiaphragm in association with worsening right basilar airspace disease and pleural effusion. Heart/Mediastinum: Epicardial fat accentuates the cardiac silhouette. Bones/joints: Unremarkable. XR/XR chest 1V portable [id number] IMPRESSION: 1. Asymmetric airspace disease, right greater than left, and interstitial prominence. 2. New obscuration of the right hemidiaphragm in association with worsening right basilar airspace disease and pleural effusion.
--- NOTE | 2020-08-07 09:10 | PC.NURSE ---
blood pressure down at this time ns bolus in progress at this time .. dypnic with any activity noted on high flow o2
--- NOTE | 2020-08-07 10:25 | PC.NURSE ---
iv sited right ac space
[2020-08-07 11:03] LABS: Hemoglobin 13.1 g/dL (11.7-16.6); Lymphocytes % 16.6 %; Mean Corpuscular HGB Conc 29.8 g/dL (30.0-36.0); Mean Corpuscular Hemoglobin 23.6 pg (28.0-34.0); Mean Corpuscular Volume 79.1 fL (80-94); Mean Platelet Volume 11.9 fL (7.4-10.4); Monocytes # 0.5 10^3/uL (0.2-0.9); Monocytes % 8.3 %; Neutrophils # 4.66 10^3/uL (1.8-7.7); Neutrophils % 74.3 %; Nucleated Red Blood Cells # 0.1 /100WBC; Platelet Count 210 10^3/cmm (130-400); Red Blood Count 5.56 10^6/uL (4.1-5.3); Red Cell Distribution Width 14.8 % (12.1-15.1); White Blood Count 6.3 10^3/uL (4.0-10.0)
[2020-08-07 11:09] LABS: ABG PH Result 7.41 (7.35-7.45); Arterial Blood Gas Hematocrit 42.1 % (42-52); Blood Gas Allen Test Pos; Blood Gas Operator Identificat BD; Blood Gas Sample Site Radial, left; Blood Gas Sample Type Arterial; HCO3 ABG 33.1 mmol/L (22-26); Oxygen Device BIPAP; PO2 ABG 51.4 mmHg (80.0-100.0)
[2020-08-07 11:33] LABS: Lactic Sepsis W/Reflex 1.4 mmol/L (0.5-2.2)
[2020-08-07 11:43] LABS: Procalcitonin 0.14 ng/mL (0-0.5)
[2020-08-07 11:55] LABS: Albumin Level 3.5 g/dL (3.5-5.2); Alkaline Phosphatase 64 IU/L (40-130); Anion Gap 16.1 (5-19); Aspartate Amino Transferase 35 U/L (0-40); Blood Urea Nitrogen 11 mg/dL (6-20); Calcium 8.4 mg/dL (8.5-10.5); Carbon Dioxide 29 mmol/L (22-29); Chloride 98 mmol/L (98-107); Ferritin 203 ng/mL (30-400); Globulin 2.6 g/dL (1.3-4.6); Glomerular Filtration Rate 142.4 mL/min (90-130); Glucose 129 mg/dL (65-115); Osmolality Calculated 289 mOsm/kg (285-295); Potassium 4.1 mmol/L (3.5-5.1); Sodium 139 mmol/L (136-145); Total Bilirubin 0.5 mg/dL (0.15-1.2); Total Protein 6.1 g/dL (6.6-8.7)
[2020-08-07 12:16] LABS: Alanine Aminotransferase 38 U/L (0-41)
[2020-08-07] MEDS: sodium chloride 0.9% 1,000 ML 50 ML IV (17:29)
[2020-08-07] MEDS: levoFLOXacin 750 mg Tablet PO (17:29)
[2020-08-07] MEDS: remdesivir 100 MG in sodium chloride 0.9% (100 ml) 100 ML IV (17:30)
[2020-08-07] MEDS: ipratropium-albuterol 3 mL Neb INHALATION (19:33)
[2020-08-07] MEDS: dexamethasone 4 mg/mL INJ 6 MG IVP (19:35)
[2020-08-07] MEDS: rocuronium 10 mg/mL INJ 5mL 100 MG IV (20:17)
[2020-08-07] MEDS: adenosine 3 mg/mL SDV 2mL 6 MG (20:45)
[2020-08-07] MEDS: adenosine 3 mg/mL SDV 2mL 12 MG (20:55)
--- NOTE | 2020-08-07 20:55 | XRR_ITS ---
PROCEDURE INFORMATION: Exam: XR Chest, 1 View Exam date and time: 08/07/2020 9:36 PM Age: 20 years old Clinical indication: Device placement; Ett placement (vent status); Patient HX: Post intubation TECHNIQUE: Imaging protocol: XR of the chest Views: Frontal portable semiupright view of the chest. COMPARISON: CR (CHEST, ) 08/07/2020 9:05 AM FINDINGS: Tubes, catheters and devices: The endotracheal tube tip is approximately 3.5 cm above the puneet. EKG leads are present overlying the chest. EKG leads are present overlying the chest. Lungs: Moderate pulmonary hypoexpansion. Consolidative densities right upper lobe, medial right middle lobe and lower lobe, stable. Left inferior parahilar and medial lower lobe consolidation/atelectasis, stable. Additional bilateral pulmonary infiltrates, stable. Pleural space: The right costophrenic angle is slightly excluded. Unremarkable as visualized. No pneumothorax. The right costophrenic angle is slightly excluded. Unremarkable as visualized. No pneumothorax. Heart/Mediastinum: The heart is normal in size and contour. Mediastinum: Stable. Bones/joints: Stable. XR/XR chest 1V portable [id number] IMPRESSION: 1. Moderate pulmonary hypoexpansion. 2. Consolidative densities right upper lobe, medial right middle lobe and lower lobe, stable. 3. Left inferior parahilar and medial lower lobe consolidation/atelectasis, stable. 4. Additional bilateral pulmonary infiltrates, stable. 5. Endotracheal tube placement as above.
[2020-08-07] MEDS: propofol 1,000 MG/100 ML INJ 11 MG IV (21:00)
[2020-08-07] MEDS: sodium bicarbonate 8.4% 1 mEq/mL 50mL Syr 150 MEQ (21:26)
[2020-08-07] MEDS: EPINEPHrine 0.1 mg/mL SYR 10 mL 1 MG (21:34)
--- NOTE | 2020-08-07 21:46 | PM.DDS ---
Discharge Providers DDS Date of Admission: 08/06/20 20:51 Date Summary Completed: 08/07/20 Attending Provider at Admission: Almas Singer MD Time of : 21:35 Attending Provider at Discharge: Shanthi Boyd Pronouncing Clinician: Almas Singer Consults: Pulmonary Medicine DS Diagnoses Hospital Diagnoses (1) Viral pneumonia: (2) Sepsis: (3) Acute respiratory failure with hypoxia: Reason for Visit Reason for Visit: SOB, chest pressure Summary Date and Time of Date of : 08/07/20 Time of : 21:35 Summary Summary: 20 year old male who does not have significant past medical history other than hypothyroidism presented today with chief complaint of 4 days of shortness of breath. Patient is stating that he smokes marijuana on a weekly basis, does VAP on daily basis, started experiencing diarrhea 4 days ago and shortness of breath, also noticed temperature 101, he did not experience any coughing, PND, chest pain, headache but he has been experiencing myalgias, fatigue and lethargy, today his shortness of breath got worse hence decided to come to the ED for further evaluation. Patient was saturating 38% reportedly on room air on arrival, he was immediately put on high flow oxygen 55 L 85% FiO2 which improved his work of breathing and oxygenation, considering high D-dimer CT was obtained which did not reveal PE, procalcitonin not high he was started on remdesivir and Decadron. Covid antigen was negative hence PCR was sent because of high suspicion. Patient is stating that he was diagnosed with hypothyroidism in 2018 and never got any treatment for that, currently working for [employer], lives with a roommate, he does have anxiety and sometimes picks on his skin. Diagnosis in the ER revealed hypotension, tachycardia, sepsis secondary to COVID-19, he was started on lactated Ringer fluid resuscitation, by the time I saw her he was saturating well on high flow 55 L 85% he just came back from CTA chest was not endorsing active shortness of breath however endorsed pleuritic chest pain on right side, in the ER he received albuterol & Levaquin as well Initial laboratory workup has shown a WBC of 7.2, hemoglobin of 13.9, hematocrit of 46.1 and a platelet count of 257. D-dimer was elevated of 4.63. Arterial blood gases were drawn which showed a pH of 7.44, pCO2 of 44.3, PO2 of 63.3 and a bicarb of 30.3. This was on 15 L non-rebreather. CTA report had shown no definitive evidence of pulmonary embolism / pulmonary arterial thrombus however did have extensive bilateral ground-glass interstitial lung disease with evidence of early consolidation consistent with active pneumonitis. Marginally prominent mediastinal lymph node presumably reactive. In addition to this incidentally he was noted to have soot hepatomegaly, hepatization of the gallbladder and splenomegaly. P He was continued on decadron 6 mg zeb, Remdesivir 100 mg IV daily after 200 mg IV loading dose and empirically on levaquin 750 mg PO daily. Patient was noted to have low O2 sat in am. He was transitioned to positive pressure ventilation however monitored though out the day as he was high risk for decompensation. His respiratory status rapidly worsened requiring intubation and initiation of mechanical ventilation. Unfortunately despite this intervention patient continued to remain hypoxic. Pulmonary medicine was consulted. Arterial blood gases showed a pH of 7.29, pCO2 72.4, PO2 of 33.6 and a bicarb of 34.5. Code blue was called as patient had progressed to pulseless electrical activity secondary to hypoxia. Chest x-ray was repeated which did not show any evidence of tension pneumothorax. ROSC was not obtained. Per documentation family was contacted in at the request resuscitation was stopped. Patient at 9:35 p.m. on . Additional Data Confirmation of as documented by pronouncing clinician: no pulse, no respirations and no heart sounds Family: contacted Additional persons at bedside: nursing staff Attending/PCP notified?: I am attending Was code activated?: Yes Autopsy requested?: No Advance directives?: No Hospice patient?: No Discharge Plan Discharge Patient Disposition: At Medical Facility Condition: Prescriptions: No Action No Known Home Medications RF: 0 Probable Cause of Probable cause of : Cardiac arrest DS Attestations Time Spent in /Discharge Care*: greater than 30 min Quality - AMI: AMI present?: No Quality - Stroke: CVA present?: No Symptom Onset Unknown: No Quality - VTE: VTE present?: No Deep Vein Thrombosis/Pulmonary Embolism Present on Admission: No Coding Level of Care Code Acute Center Aisle Cashier for [facility] F[facility] Diagnoses Viral pneumonia J12.9 Sepsis A41.9 Acute respiratory failure with hypoxia J96.01
--- NOTE | 2020-08-07 22:50 | P.EN_ITS ---
Event Note Event Note: I was called by respiratory therapist that saturation were 88% on BiPAP FiO2 100% DuoNeb was given x1 O2 saturation remained 88 to 89% minimum 85 to 86% after DuoNeb treatment, dysuria was made to intubate the patient Dr. Tovar intubated the patient who was already in the ICU, soon after intubati on his O2 saturation dropped to 45%, max improved to 54% on the ventilator, changes were made on the vent after calling manager change Dr. Duron and soon after that patient coded. ROBY ELVIRA was called Pulseless electrical activity secondary to hypoxia Endotracheal tube was well placed, no tension pneumothorax as per Dr. Tovar PEA ACLS protocol was followed, unfortunately ROSC was not obtained after code ran for more than 15mins, family was contacted, mother asked the code team to stop resuscitation and he was pronounced at 1958
[2020-08-07 23:08] LABS: ABG PH Result 7.29 (7.35-7.45)
[2020-08-07 23:09] LABS: ABG PCO2 72.4 mmHg (35-45); PO2 ABG 33.6 mmHg (80.0-100.0)
[2020-08-07 23:10] LABS: Base Excess ABG 5.2 mmol/L (-2.0-2.0); Blood Gas Allen Test POS; HCO3 ABG 34.5 mmol/L (22-26); Oxygen Device VENT
[2020-08-07 23:11] LABS: Arterial Blood Gas Hematocrit 44.7 % (42-52); Blood Gas Sample Type ARTERIAL
--- NOTE | 2020-08-08 01:06 | PC.NURSE ---
Addendum entered by Maria Luz Win RN 08/08/20 01:37: 2115- Patient's mother called to notify of condition and mother stated she was across the street and would come right away to the hospital. Original Note: 1844 While taking report from KI Ovalle RN patient began to de-sat. This nurse went to room and checked patient, he was sitting upright in bed and not moving around but was awake, alert, and oriented. Bipap was at 90%. Oxygen was changed to 100%. Attempt to contact hospitalist Dr. Singer made at 1854. 1854- Attempt made to notify of patient's oxygen being 84% on 100% Fi02. Unable to reach Dr. Singer. Respiratory notified of patient's change in condition. 1899- Called Dr. Singer again and reached him. He ordered duoneb to be given. Duoneb was administered with no improvement in condition. 1909- Dr. Tovar on floor. Decision made to intubate. Patient still awake, alert, and oriented. Requested to call his mother. Spoke to mother on the phone. Patient gave permission to proceed with intubation. INTUBATION 2016- 40mg of Etomidate given, 100mg of rocuronium given per Dr. Tovar order. ET tube was 8.0/26 at the lip and confirmed placement with x-ray. Versed, Fentanyl, Propofol ordered for sedation. 2016 Fentanyl and versed started. 2019- Oxygen saturation 45%- Dr. Lomax called and at bedside. Dr. Tovar, Dr. Sniger, Dr. Lomax at bedside. 2040- Heart rate 177. EKG obtained and patient was in SVT. 2044- Dr. Lomax ordered 6mg of adenosine to be given. This nurse gave 6mg of adenosine. Heart rate 178. Dr. Lomax requested 12mg of adenosine to be given. 2047- This nurse administered 12mg of adenosine. Heart rate - 175 2054- Heart rate 161- Dr. Lomax ordered 20mg of diltiazem and a diltiazem drip. Luisa Pool RN administered 20 mg of diltiazem. This nurse started diltiazem drip at 5mg. 2099- Heart rate 157. Dr. Lomax requested propofol to be started. This nurse started propofol at 10mcg/kg/hr. 2109- patient PEA- CODE called see CODE sheet. Versed, fentanyl, propofol stopped.
--- NOTE | 2020-08-08 01:25 | ECG_ITS ---
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 Measurements Intervals [place] Rate: 176 P: [place]: QRS: 57 QRSD: 94 T: 14 QT: 269 QTc: 461 Interpretive Statements SUPRAVENTRICULAR TACHYCARDIA LOW QRS VOLTAGE IN PRECORDIAL LEADS [QRS DEFLECTION < 1.0 mV IN CHEST LEADS] Compared to ECG 08/07/2020 01:06:14 Low QRS voltage now present Sinus rhythm no longer present Electronically Signed On 08-08-2020 11:00:41 PATIENT TRANSPORT OFFICER by Ry Narayan M.D. [id number] f
--- NOTE | 2020-08-08 01:38 | PC.NURSE ---
2[address] Time of called by Dr. Tovar at 2134. MTS notified and patient is not a candidate per Shannon Marcos. Ref# [id number] [facility] released the patient as not a candidate per Cece Christensen. Ref# [id number]
--- NOTE | 2020-08-08 01:40 | PC.NURSE ---
2150 Wasted 90mL of Fentanyl and 95mL of versed. Witnessed by Nely Martines RN.
--- NOTE | 2020-08-08 02:28 | PC.NURSE ---
2240 Evangelina Corona home here to get patient.
--- NOTE | 2020-08-08 09:05 | PM.CONSULT ---
Providers/Reason For Consult Consulting Physican/Specialty*: Jalen Garcia MD/ Pulmonary Critical Care Reason for Consult*: severe hypoxia and desaturation even after intubation and ventilation on 100% FIO2 and PEEP of 14 Requesting Physcian: Ryan robertson MD Attending Physician: Shanthi Boyd History of Present Illness History of Present Illness Consult called over phone by Intubating physician Dr. Robertson to help with vent management as patient sats were in 50s even after proper sedation, on 100 FIO2 and PEEP of 14. As I was out of town (not lubrication equipment servicer) could not see the patient in person. I received call @ 20:36 Consulted for morbidly obese young patient, who was intubated after failing trial of BiPAP for ARDS likely secondary to Suspected COVID-19 pneumonia vs ? Vaping related ARDS and saturating low 80s on BIPAP 100%.Also i was reported that Pt. was just intubated and sedated and currently on mechanical ventilator VC mode: RR 15, PEEP 14, FIO2 100%, TV 550 and post intubation saturation was 58% and heart rate 177. Dr. Sylvester from ER at bedside and patient was given adenosine, cardizem. Dr. Robertson reported intubation was uneventful and chest x ray confirmed ET tube placement with no pneumothorax. Also reported that patient is adequately sedated and is not overbreathing the ventilator. Also informed that CT angio day before was reported negative for pulmonary angiogram. Spoke to RT: and she reported Ti 0.90 secs and AB.28/72/33/53% Saturation on 100% FIO2 and PEEP 14. plateau pressure 31. Based on the given scenario i understood that patient is critically ill. Recommended to increase Ti to 1.10 and increase PEEP to 18 (explained risk of possible pneumothorax) as long as the plateau pressures remain around 35; - recommended to initiate aralytic and Prone the patient.(PS:is morbidly obese and it is difficlut to prone as well). I did a follow up call @ [address] Davis and learnt that patient had cardiac arrest @ 2108 and declared at 21:35.. Review of Systems General: Reports: Other Meds/Allergies Home Medications and Allergies Home Medications Medication Instructions Recorded Confirmed Last Taken Type No Known Home Medications 08/07/20 08/07/20 Unknown History Allergies Allergy/AdvReac Type Severity Reaction Status Date / Time No Known Allergies Allergy Verified 11/28/19 11:13 PFSH Acute PFSH: Medical History (Updated 08/06/20 @ 22:12 by Almas Singer MD) Hypothyroidism Surgical History (Updated 08/06/20 @ 22:06 by Almas Singer MD) No pertinent past surgical history Family History (Updated 08/06/20 @ 22:06 by Almas Singer MD) Other CAD (coronary artery disease) Diabetes Social History (Updated 08/06/20 @ 22:07 by Almas Singer MD) Smoking and tobacco status: current every day smoker Alcohol intake: never Household members: friend(s) Housing: Apartment Vitals/I&O/Wt Last Vital Signs Temp 98 F 08/07/20 17:00 Pulse 98 08/07/20 21:30 Resp 20 H 08/07/20 20:40 BP 62/50 08/07/20 21:30 Pulse Ox 50 L 08/07/20 21:00 08/07/20 08/08/20 08/08/20 22:59 06:59 14:59 Intake Total 447.950 / 447.950 Balance 447.950 / 197.950 Weight last 48 hrs Weight 405 lb Physical Exam Narrative: EXAM NARRATIVE: phone consultation only : unable to perform Physical Exam Data Micro: Micro: Microbiology 08/06/20 20:35 Blood Culture - Pr eliminary Blood NEGATIVE TO JESSICA E 08/06/20 18:22 Blood Culture - Pr eliminary Blood NEGATIVE TO JESSICA E A&P Additional A&P Information please check HPI Coding Level of Care Code Acute Frothing Machine Operator for Gilda Chase
[2020-08-08 14:39] LABS: Quest SARS-CoV-2 RNA DETECTED (NOT DETECTED)
[2020-08-12 13:40] LABS: Blood Gas CCRB Time 2135
== END 2020-08-07 21:35 | disposition expired | DRG 871 ==
LOC: ER 20:55 → ICU 08-07 00:01
PROVIDERS: Internal Medicine; Admitting Provider Internal Medicine; Emergency Provider Emergency Medicine; Visit Provider Hospitalist
DX: A41.9 Sepsis, unspecified organism (principal); U07.1 COVID-19; J12.89 Other viral pneumonia; J96.01 Acute respiratory failure with hypoxia; Z68.43 Body mass index [BMI] 50.0-59.9, adult; E03.9 Hypothyroidism, unspecified; F12.90 Cannabis use, unspecified, uncomplicated; U07.0 Vaping-related disorder; F17.290 Nicotine dependence, other tobacco product, uncomplicated; F41.9 Anxiety disorder, unspecified; E66.01 Morbid (severe) obesity due to excess calories; I46.9 Cardiac arrest, cause unspecified; I95.9 Hypotension, unspecified
CPT/HCPCS: 12345; 36600; 71045; 71275; 80053; 82550; 82728; 82803; 83036; 83605; 83615; 83880; 84145; 84443; 84484; 85025; 85378; 85384; 85610; 86140; 87040; 87426; 87635; 87804; 93005; 94002; 94640; 94660; 99284; J0153; J0171; J1100; J1650; J1956; J2250; J2704; J3010; J3490; J3535; J7030; J7040; Q9967